=== PATIENT | male | born 1960 | race Caucasian/White ===

== ENCOUNTER 2017-05-22 15:31 | Emergency (ER) | payer SELFPAY ==
[2017-05-22] MEDS ORDERED: KETOROLAC 30 MG/ML INJ ONE (17:19)
--- NOTE | 2017-05-22 17:54 | EDPHYS ---
Physician Documentation [facility] Name: Dilshad Torres Age: 56 yrs Sex: Male : 1960 Arrival Date: 05/22/2017 Time: 15:34 Bed 11 Private MD: ED Physician Nickolas Harrison HPI: 05/22 16:51 This 56 yrs old Male presents to ER via Wheelchair with complaints of Knee jr8 Pain. 16:51 The patient presents with decreased range of motion, pain. The complaints affect the jr8 left knee. Context: The problem was sustained at home, resulted from an unknown cause. Onset: The symptoms/episode began/occurred acutely, yesterday. Modifying factors: The symptoms are alleviated by nothing. the symptoms are aggravated by movement, weight bearing, bending knee. Associated signs and symptoms: The patient has no apparent associated signs or symptoms. Severity of symptoms: At their worst the symptoms were moderate, in the emergency department the symptoms are unchanged. The patient has not experienced similar symptoms in the past. The patient has not recently seen a physician. Historical: - Allergies: 16:00 No Known Allergies; hb - Home Meds: 16:00 Prevacid Oral [Active]; hb - PMHx: 16:00 Gastric Reflux; hb - PSHx: 16:00 Cholecystectomy; Appendectomy; hb - Immunization history:: Adult Immunizations up to date. - Social history:: Smoking status: Patient/guardian denies using tobacco. ROS: 16:51 Eyes: Negative for injury, pain, redness, and discharge, ENT: Negative for injury, jr8 pain, and discharge, Neck: Negative for injury, pain, and swelling, Cardiovascular: Negative for chest pain, palpitations, and edema, Respiratory: Negative for shortness of breath, cough, wheezing, and pleuritic chest pain, Abdomen/GI: Negative for abdominal pain, nausea, vomiting, diarrhea, and constipation, Back: Negative for injury and pain, Skin: Negative for injury, rash, and discoloration, Neuro: Negative for headache, weakness, numbness, tingling, and seizure. 16:51 MS/extremity: Positive for decreased range of motion, pain, tenderness, of the left knee. Exam: 16:51 Cardiovascular: Regular rate and rhythm with a normal S1 and S2. No gallops, murmurs, jr8 or rubs. Normal PMI, no JVD. No pulse deficits. Respiratory: Lungs have equal breath sounds bilaterally, clear to auscultation and percussion. No rales, rhonchi or wheezes noted. No increased work of breathing, no retractions or nasal flaring. Abdomen/GI: Soft, non-tender, with normal bowel sounds. No distension or tympany. No guarding or rebound. No evidence of tenderness throughout. Back: No spinal tenderness. No costovertebral tenderness. Full range of motion. Skin: Warm, dry with normal turgor. Normal color with no rashes, no lesions, and no evidence of cellulitis. Neuro: Awake and alert, GCS 15, oriented to person, place, time, and situation. Cranial nerves II-XII grossly intact. Motor strength 5/5 in all extremities. Sensory grossly intact. Cerebellar exam normal. Normal gait. 16:51 Musculoskeletal/extremity: Extremities: grossly normal except: noted in the left knee: decreased ROM, pain, ROM: full active range of motion, full passive range of motion, limited active range of motion due to pain, limited passive range of motion due to pain, Circulation is intact in all extremities. Sensation intact. Joints: the left knee displays pain at rest, painful range of motion, tenderness. Vital Signs: 16:00 BP 131 / 82; Pulse 75; Resp 18; Temp 98; Pulse Ox 100% on R/A; Weight 98.43 kg; Height hb 5 ft. 10 in. (177.80 cm); Pain 10/10; 18:04 BP 128 / 78; Pulse 89; Resp 17; Pulse Ox 99% on R/A; aj 16:00 Body Mass Index 31.14 (98.43 kg, 177.80 cm) hb Procedures: 17:52 Splinting: Splint applied to left knee using knee immobilizer, applied by nurse. jr8 Examined by me, post splint application: neurovascular intact, 2+ distal pulses palpable, brisk capillary refill noted, Patient tolerated well. Crutch training provided to patient and/or family. Return demonstration given. MDM: 16:11 Patient medically screened. jr8 17:52 Data reviewed: vital signs, nurses notes, radiologic studies, plain films, and as a jr8 result, I will discharge patient. Data interpreted: Pulse oximetry: on room air is 100 %. Interpretation: normal. Counseling: I had a detailed discussion with the patient and/or guardian regarding: the historical points, exam findings, and any diagnostic results supporting the discharge/admit diagnosis, radiology results, the need for outpatient follow up, a orthopedic surgeon, to return to the emergency department if symptoms worsen or persist or if there are any questions or concerns that arise at home. 05/22 16:18 Order name: XRAY Knee LEFT 3 view jr8 05/22 17:48 Order name: Knee Immobilizer; Complete Time: 18:04 hb Administered Medications: 17:08 Drug: TORadol 60 mg Route: IM; Site: right deltoid; aj 18:00 Follow up: Response: No adverse reaction; Pain is decreased aj Disposition: 18:39 Co-signature as Attending Physician, Nickolas Harrison MD. rn Disposition: 05/22/17 17:53 Discharged to Home. Impression: Pain in left knee. - Condition is Stable. - Discharge Instructions: Knee Pain. - Prescriptions for Ibuprofen 800 mg Oral Tablet - take 1 tablet by ORAL route every 12 hours As needed take with food; 20 tablet. Tramadol 50 mg Oral Tablet - take 1 tablet by ORAL route every 8 hours as needed; 12 tablet. - Medication Reconciliation Form, Thank You Letter, Antibiotic Education, Prescription Opioid Use form. - Follow up: Private Physician; When: 2 - 3 days; Reason: Recheck today's complaints, Continuance of care, Re-evaluation by your physician. - Problem is new. - Symptoms have improved. Signatures: Dispatcher [employer] Jessi Deal RN RN aj Nieto, Roman, MD MD rn Roszak, Josh, PA PA jr8 Kristel Johnson RN RN
--- NOTE | 2017-05-22 17:54 | ER ---
Nurse's Notes [facility] Name: Dilshad Torres Age: 56 yrs Sex: Male : 1960 Arrival Date: 05/22/2017 Time: 15:34 Bed 11 Private MD: Diagnosis: Pain in left knee Presentation: 05/22 15:57 Presenting complaint: Patient states: Pt reports he was stepping up into truck hb yesterday and felt something snap behind his knee, now c/o LEFT knee pain /. Transition of care: patient was not received from another setting of care. Onset of symptoms was May 21, 2017. 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 15:57 Method Of Arrival: Wheelchair hb 15:57 Acuity: JOSIE 4 hb Historical: - Allergies: 16:00 No Known Allergies; hb - Home Meds: 16:00 Prevacid Oral [Active]; hb - PMHx: 16:00 Gastric Reflux; hb - PSHx: 16:00 Cholecystectomy; Appendectomy; hb - Immunization history:: Adult Immunizations up to date. - Social history:: Smoking status: Patient/guardian denies using tobacco. Screenin:08 Abuse screen: Denies threats or abuse. Denies injuries from another. Nutritional aj screening: No deficits noted. Tuberculosis screening: No symptoms or risk factors identified. Fall Risk None identified. Assessment: 16:08 General: Appears in no apparent distress. comfortable, Behavior is calm, cooperative, aj appropriate for age. Pain: Complains of pain in posterior aspect of left knee and left knee. Neuro: Level of Consciousness is awake, alert, obeys commands, Oriented to person, place, time, situation. Respiratory: Airway is patent Respiratory effort is even, unlabored, Respiratory pattern is regular, symmetrical. Derm: Skin is intact, is healthy with good turgor, Skin is pink, warm \T\ dry. normal. Musculoskeletal: Circulation, motion, and sensation intact. Reports pain in posterior aspect of left knee and left knee. Vital Signs: 16:00 BP 131 / 82; Pulse 75; Resp 18; Temp 98; Pulse Ox 100% on R/A; Weight 98.43 kg; Height hb 5 ft. 10 in. (177.80 cm); Pain 10/10; 18:04 BP 128 / 78; Pulse 89; Resp 17; Pulse Ox 99% on R/A; aj 16:00 Body Mass Index 31.14 (98.43 kg, 177.80 cm) ED Course: 15:34 Patient arrived in ED. mr 15:59 Triage completed. hb 16:00 Arm band placed on left wrist. hb 16:08 Jessi Cazares, RN is Primary Nurse. aj 16:08 Patient has correct armband on for positive identification. aj 16:08 No provider procedures requiring assistance completed. Patient did not have IV access aj during this emergency room visit. 16:11 Stoney Pascual PA is PHCP. wendy 16:11 Nickolas Harrison MD is Attending Physician. jrRoque 18:04 Knee immobilizer applied on left knee. aj Administered Medications: 17:08 Drug: TORadol 60 mg Route: IM; Site: right deltoid; aj 18:00 Follow up: Response: No adverse reaction; Pain is decreased aj Outcome: 17:53 Discharge ordered by MD. jr8 18:04 Discharged to home ambulatory. aj 18:04 Condition: good 18:04 Discharge instructions given to patient, Instructed on discharge instructions, follow up and referral plans. medication usage, Demonstrated understanding of instructions, follow-up care, medications, Prescriptions given X 2. 18:05 Patient left the ED. Signatures: Jessi Cazares, RN RN Laxmi Corbett mr Stoney Pascual PA PA Kristel Martin RN RN
[2017-05-22 18:09] VITALS: TEMP 98
[2017-05-22 18:10] VITALS: BP 128/78; O2SAT 99
--- NOTE | 2017-05-22 18:14 | RAD REPORT ---
EXAM DESCRIPTION: RAD - Knee Left 3 View - 05/22/2017 5:40 pm CLINICAL HISTORY: Left knee pain status post injury FINDINGS: Several bony densities lie anterior to proximal tibia. Most likely these are chronic. No a cute fracture or dislocation is seen. If the patient continues to have symptoms to suggest an occult fracture, tendon or meniscal injury th en MRI would be recommended
== END 2017-05-22 18:05 | disposition home or self-care (01) ==
LOC: ER 15:31
DX: M25.562 Pain in left knee (principal); K21.9 Gastro-esophageal reflux disease without esophagitis; X58.XXXA Exposure to other specified factors, initial encounter; Y92.009 Unspecified place in unspecified non-institutional (private) residence as the place of occurrence of the external cause
CPT/HCPCS: 96372; 99283

== ENCOUNTER 2022-04-28 08:42 | Emergency (ER) | payer OTHER ==
--- OUTSIDE RECORDS SUMMARY | 2022-04-28 08:46 | XMS REPORT | Continuity of Care Document ---
:1960 Author Organization [facility] t Address [address] [place] [address] Care Team Providers Name Role Phone Jimmy Blunt Attending Clinician Unavailable Payers Payer Name Policy Type Policy Number Effective Date Expiration Date S [place] [id number] 2021 Common HEALTHCARE 00:00:00 [facility] Problems Condition Condition Condition Status Onset Resolution Last Treating Co mments Source Name Details Category Date Date Treatment Clinician Date [id number] Primary Problem Comm on osteoarthr [facility] itis of [facility] right knee [facility] [id number] GERD Problem Common without [facility] esophagiti [facility] [id number] Mixed Problem Common hyperlipid [facility] emia [facility] Allergies, Adverse Reactions, Alerts This patient has no known allergies or adverse reactions. Social History Social Habit Start Date Stop Date Quantity Comments Source History of Tobacco Use Co mmon [facility] Sex Assigned At Com mon [facility] Smoking Status Start Date Stop Date Source Never Smoker Common [facility] Medications Ordered Filled Start Stop Current Ordering Indication Dosage Frequency Signature Comments Components Source Medication Medication Date Date Medication? Clinician (SIG) Name Name Lovastatin Lovastatin 2020-0 Yes Jimmy 1 tablet Common 8-11 Blunt with [facility] 00:00: evening - [facility] 00 meal [facility] Pantoprazol Pantoprazol 2019-0 Yes Jimmy 1 tablet Common e Sodium e Sodium 8-11 Blunt [facility] 00:00: - [facility] 00 [facility] Pantoprazol Pantoprazol 2020-0 No 1{table QD Pantoprazo e Sodium 40 e Sodium 40 8-11 t} le Sodium MG MG 00:00: 40 MG 00 Lovastatin Lovastatin 2019-0 No QD Lovastatin 20 MG 20 MG 8-11 20 MG 00:00: 00 Pantoprazol Pantoprazol 2020-0 No 1{table QD Pantoprazo e Sodium 40 e Sodium 40 8-11 t} le Sodium MG MG 00:00: 40 MG 00 Lovastatin Lovastatin 0 No QD Lovastatin 20 MG 20 MG 8-11 20 MG 00:00: 00 Osteo Osteo 2020-0 Yes Jimmy 1 tablet Commo n Bi-Flex Adv Bi-Flex Adv 4-29 [facility]unt [facility] Joint Joint 00:00: - [facility] Shield Shield 00 [facility] Osteo Osteo 2020-0 No 1{table BID Osteo Bi-Flex Adv Bi-Flex Adv 4-29 t} Bi-Flex Joint Joint 00:00: Adv Joint Shield - Shield - 00 Shield - Osteo Osteo 2020-0 No 1{table BID Osteo Bi-Flex Adv Bi-Flex Adv 4-29 t} Bi-Flex Joint Joint 00:00: Adv Joint Shield - Shield - 00 Shield - Prilosec Prilosec Yes Jimmy not Commo n OTC OTC Blunt defined [facility] PriLOSEC PriLOSEC No PriLOSEC OTC OTC OTC PriLOSEC PriLOSEC No PriLOSEC OTC OTC OTC Procedures This patient has no known procedures. Encounters Start End Encounter Admission Attending Care Care Encounter Source Date/Time Date/Time Type Type Clinicians Facility Department ID 2021-12-09 Outpatient Blunt, [facility] [id number] Common 11:19:01 Jimmy [facility] 2021-03-30 Outpatient Blunt, [facility] [id number] Common 11:36:51 Jimmy [id number] [facility] 2021-03-30 Outpatient Blunt, [facility] [id number] Common 11:33:02 Jimmy [id number] [facility] 2021-03-30 Outpatient Blunt, [facility] [id number] Common 11:19:01 [facility] [id number] [facility] 2022-01-30 2022-01-30 (TEL) STLMLC STLMLC [id number] Co mmon 00:00:00 00:00:00 [facility] 2022-01-30 2022-01-30 (TEL) STLMLC STLMLC [id number] Co mmon 00:00:00 00:00:00 [facility] 2019-10-14 2019-10-14 [facility] [id number] Common 13:15:00 13:15:[address] [facility] 2019-07-22 2019-07-22 [facility] [id number] Common 10:20:00 10:20:00 t [facility] [address] [facility] 2019-07-01 2019-07-01 [facility] [id number] Common 13:17:00 13:17:[address] [facility] 2019-07-01 2019-07-01 [facility] [id number] Common 08:45:00 08:45:[address] [facility] 2019-06-25 2019-06-25 [facility] [id number] Common 15:30:00 15:30:[address] [facility] Results This patient has no known results.
[2022-04-28 09:13] LABS: Urine Blood 3+ (Negative); Urine Glucose Negative (Negative); Urine Protein Trace (Negative); Urine Specific Gravity 1.015 (1.005-1.030)
[2022-04-28 09:27] LABS: Urine Bacteria None Seen /HPF (<20); Urine Mucus Slight /HPF (None Seen); Urine RBC >50 /HPF (None Seen)
[2022-04-28 09:44] LABS: Absolute Lymphocytes (CBC) 1.4 K/uL (0.7-4.9); Hematocrit 40.8 % (39.6-49.0); Lymphocytes % 23.6 % (15.3-44.8); MCV 89.1 fL (80-100); MPV 7.5 fL (7.6-11.3); RBC Red Blood Cell Count 4.58 M/uL (4.33-5.43)
[2022-04-28 10:15] LABS: Albumin 4.1 g/dL (3.4-5.0); Bilirubin Total 0.4 mg/dL (0.2-1.0); Protein, Total 7.9 g/dL (6.4-8.2)
--- NOTE | 2022-04-28 11:04 | RAD REPORT ---
EXAM DESCRIPTION: CT - Abdomen Pelvis W Contrast - 04/28/2022 10:30 am CLINICAL HISTORY: Hematuria. Dysuria COMPARISON: 12/20/2015 TECHNIQUE: Biphasic, helical CT imaging of the abdomen and pelvis was performed following the intrav enous administration of 100 mL Isovue-300. Multiplanar reformats were generated and reviewed. All CT scans are performed using dose optimization technique as appropriate and may include automated exposure control or mA/KV adjustment according to patient size. FINDINGS: No suspicious findings in the lung bases. The liver, spleen, and pancreas show no suspicious findings. Status post cholecystectomy. Grossly, no evidence of intra or extrahepatic biliary ductal dilation. Symmetric renal function is seen with no hydronephrosis or suspicious renal mass. No dilated bowel loops or bowel wall thickening. No free air, free fluid or inflammatory stranding. N o hernia, mass or bulky lymphadenopathy. Suboptimal distention of the urinary bladder limits evaluation. Mild prominence of the prostate gland , with its median lobe projecting along the neck of the bladder. Small fat containing umbilical hernia. No suspicious bony findings. IMPRESSION: No acute abnormality. No suspicious findings to explain the patient's symptoms. The evaluation is limited in the absence of a urographic phase. If clinically indicated, a dedicated hematuria protocol CT with a delayed urographic phase can be performed for further evaluation.
--- NOTE | 2022-04-28 11:11 | ER ---
Nurse's Notes [facility] Name: Dilshad Torres Age: 61 yrs Sex: Male : 1960 Arrival Date: 04/28/2022 Time: 08:45 Bed 8 Private MD: Jimmy Blunt Diagnosis: Hematuria, unspecified Presentation: 04/28 09:10 Chief complaint: Hematuria and burning with urination since yesterday. Coronavirus hb screen: At this time, the client does not indicate any symptoms associated with coronavirus-19. Ebola Screen: No symptoms or risks identified at this time. Initial Sepsis Screen: Does the patient meet any 2 criteria? No. Patient's initial sepsis screen is negative. Does the patient have a suspected source of infection? No. Patient's initial sepsis screen is negative. Risk Assessment: Do you want to hurt yourself or someone else? Patient reports no desire to harm self or others. Onset of symptoms was April 27, 2022. 09:10 Method Of Arrival: Ambulatory hb 09:10 Acuity: JOSIE 3 hb Triage Assessment: 10:18 Headache History: The patient has had previous headaches and this one is similar to ll1 previous episodes. General: Appears uncomfortable, Behavior is calm, cooperative, appropriate for age. Pain: Complains of pain in head Pain Quality of pain is described as aching. Neuro: Reports headache. : Reports burning with urination. 11:18 Pain: Pain began 1 day ago. Also complains of no other associated symptoms. ll1 Historical: - Allergies: 09:11 No Known Allergies; hb - Home Meds: 09:11 Prevacid Oral [Active]; hb - PMHx: 09:11 Gastric Reflux; hb - PSHx: 09:11 Cholecystectomy; Appendectomy; hb - Immunization history:: Adult Immunizations up to date. - Social history:: Smoking status: . Screenin:18 [facility] ED Fall Risk Assessment (Adult) Score/Fall Risk Level 0 - 2 = Low Risk ll1 Oriented to surroundings, Maintained a safe environment, Educated pt \T\ family on fall prevention, incl call for assistance when getting out of bed, Hourly rounding (assess needs \T\ fall precautionary measures) done. Abuse screen: Denies threats or abuse. Nutritional screening: No deficits noted. Tuberculosis screening: No symptoms or risk factors identified. Assessment: 10:18 Reassessment: No changes from previously documented assessment. Patient and/or family ll1 updated on plan of care and expected duration. Pain level reassessed. Patient is alert, oriented x 3, equal unlabored respirations, skin warm/dry/pink. 10:35 Reassessment: No changes from previously documented assessment. back from CT. ll1 Vital Signs: 09:10 BP 136 / 80; Pulse 62; Resp 20; Temp 98; Pulse Ox 99% ; Weight 99.79 kg; Height 5 ft. hb 10 in. (177.80 cm); Pain 0/10; 11:18 BP 137 / 77; Pulse 57; Resp 18; Pulse Ox 99% on R/A; ll1 09:10 Body Mass Index 31.57 (99.79 kg, 177.80 cm) hb ED Course: 08:45 Patient arrived in ED. mr 08:45 Jimmy Blunt DO is Private Physician. mr 08:47 Chand[facility] Guadarrama [facility]C [facility] kb 08:47 Ward Nunze MD is Attending Physician. kb 09:11 Triage completed. hb 09:12 Arm band placed on. hb 09:33 Initial lab(s) drawn, by co, sent to lab. Inserted saline lock: 20 gauge in right mb4 antecubital area, using aseptic technique. Blood collected. 09:36 CBC with Diff Sent. mb4 09:36 CMP Sent. mb4 10:17 Laura Mahan, RN is Primary Nurse. ll1 10:31 CT Abd/Pelvis - IV Contrast Only In Process Unspecified. EDMS 11:11 Uzair Garcia MD is Referral Physician. kb 11:18 Patient has correct armband on for positive identification. Bed in low position. Client ll1 placed on continuous cardiac and pulse oximetry monitoring. NIBP monitoring applied. 11:18 No provider procedures requiring assistance completed. IV discontinued, intact, ll1 bleeding controlled, No redness/swelling at site. Pressure dressing applied. Administered Medications: No medications were administered Medication: 10:19 VIS not applicable for this client. ll1 Outcome: 11:11 Discharge ordered by . kb 11:18 Discharged to home ambulatory. ll1 11:18 Condition: stable 11:18 Discharge instructions given to patient, Instructed on discharge instructions, follow up and referral plans. Demonstrated understanding of instructions, follow-up care. 11:19 Patient left the ED. ll1 Signatures: Dispatcher [employer] EDChandni Lopez, LUIS F PEDRO-Latasha Hoang Heather, RN RN Kenyatta Johnson 4 Laura Mahan RN RN ll1
--- NOTE | 2022-04-28 11:11 | EDPHYS ---
Physician Documentation [facility] Name: Dilshad Torres Age: 61 yrs Sex: Male : 1960 Arrival Date: 04/28/2022 Time: 08:45 Bed 8 Private MD: Jose Raul Formerly [facility], [facility] ED Physician Ward Nunez HPI: 04/28 09:30 This 61 yrs old Male presents to ER via Ambulatory with complaints of Urinary Problem, kb Headache. 09:30 The patient presents with urinary symptoms, dysuria, Hematuria. Onset: The kb symptoms/episode began/occurred yesterday. Modifying factors: The symptoms are alleviated by nothing, the symptoms are aggravated by urinating. Associated signs and symptoms: Pertinent positives: dysuria, hematuria, Pertinent negatives: abdominal pain, fever. Severity of symptoms: At their worst the symptoms were moderate, in the emergency department the symptoms are unchanged. The patient has not experienced similar symptoms in the past. The patient has not recently seen a physician. Historical: - Allergies: 09:11 No Known Allergies; hb - Home Meds: 09:11 Prevacid Oral [Active]; hb - PMHx: 09:11 Gastric Reflux; hb - PSHx: 09:11 Cholecystectomy; Appendectomy; hb - Immunization history:: Adult Immunizations up to date. - Social history:: Smoking status: . ROS: 09:28 Constitutional: Negative for fever, chills, and weight loss. kb 09:28 : Positive for hematuria, burning with urination. 09:28 All other systems are negative. Exam: 09:28 Constitutional: This is a well developed, well nourished patient who is awake, alert, kb and in no acute distress. Head/Face: Normocephalic, atraumatic. ENT: Moist Mucous membranes Cardiovascular: Regular rate and rhythm with a normal S1 and S2. No gallops, murmurs, or rubs. No pulse deficits. Respiratory: Respirations even and unlabored. No increased work of breathing. Talking in full sentences Abdomen/GI: Soft, non-tender. No distention Skin: Warm, dry with normal turgor. Normal color. MS/ Extremity: Pulses equal, no cyanosis. Neurovascular intact. Full, normal range of motion. Neuro: Awake and alert, GCS 15, oriented to person, place, time, and situation. Moves all extremities. Normal gait. Vital Signs: 09:10 BP 136 / 80; Pulse 62; Resp 20; Temp 98; Pulse Ox 99% ; Weight 99.79 kg; Height 5 ft. hb 10 in. (177.80 cm); Pain 0/10; 11:18 BP 137 / 77; Pulse 57; Resp 18; Pulse Ox 99% on R/A; ll1 09:10 Body Mass Index 31.57 (99.79 kg, 177.80 cm) hb MDM: 08:55 Patient medically screened. 09:28 Data reviewed: vital signs, nurses notes. kb 09:28 Differential diagnosis: UTI, prostatitis, urethritis, Bladder cancer, cystitis, kidney kb stone. ED course: Patient is a 61-year-old male who presents for hematuria and dysuria that started yesterday. Also reports headaches daily for over 6 months. Denies abdominal pain, flank pain, fever. Normal physical exam. Will obtain serum labs, urinalysis and CT abdomen pelvis.. 11:10 Counseling: I had a detailed discussion with the patient and/or guardian regarding: the historical points, exam findings, and any diagnostic results supporting the discharge/admit diagnosis, lab results, radiology results, the need for outpatient follow up, a urologist, to return to the emergency department if symptoms worsen or persist or if there are any questions or concerns that arise at home. 12:15 I considered the following discharge prescriptions or medication management in the emergency department Antibiotics: At this time antibiotics are not recommended. ED course: Patient is nontoxic in appearance, tolerating p.o. intake. No abdominal or flank pain. Educated on diagnostic results and need for follow-up with urology. Verbal understanding received.. 04/28 08:59 Order name: Urine Microscopic Only; Complete Time: 09:28 kb 04/28 08:59 Order name: CBC with Diff; Complete Time: 09:48 kb 04/28 08:59 Order name: Urine Dipstick-Ancillary (obtain specimen); Complete Time: 09:13 kb 04/28 08:59 Order name: CMP; Complete Time: 10:19 kb 04/28 08:59 Order name: CT Abd/Pelvis - IV Contrast Only; Complete Time: 11:04 kb 04/28 09:13 Order name: Urine Dipstick-Ancillary; Complete Time: 09:16 EDMS 04/28 08:59 Order name: IV Saline Lock; Complete Time: 09:36 kb 04/28 08:59 Order name: Labs collected and sent; Complete Time: 09:36 kb Administered Medications: No medications were administered Disposition Summary: 04/28/22 11:11 Discharge Ordered Location: Home kb Condition: Stable kb Diagnosis - Hematuria, unspecified kb Followup: kb - With: Emergency Department - When: As needed - Reason: Worsening of condition Followup: kb - With: Private Physician - When: 2 - 3 days - Reason: Recheck today's complaints, Continuance of care, Re-evaluation by your physician Followup: kb - With: Uzair Garcia MD - When: 2 - 3 days - Reason: Recheck today's complaints Discharge Instructions: - Discharge Summary Sheet kb - Hematuria, Adult kb Forms: - Medication Reconciliation Form kb - Thank You Letter kb - Antibiotic Education kb - Prescription Opioid Use kb Signatures: Dispatcher [employer] EDMS Chandni Guadarrama, DISTRICT CLAIMS MANAGER-C DISTRICT CLAIMS MANAGER-Kristel Leigh, RN RN
[2022-04-28 11:39] VITALS: TEMP 98; O2SAT 99
[2022-04-28 11:45] VITALS: BP 137/77
== END 2022-04-28 11:19 | disposition home or self-care (01) ==
LOC: ER 08:42
DX: R31.9 Hematuria, unspecified (principal); R30.0 Dysuria
CPT/HCPCS: 85025; 36415; 80053; 74177; 99283; Q9967; 81003; 81015

== ENCOUNTER 2023-02-28 07:48 | Day surgery (SDC) | payer OTHER ==
[2023-02-27 11:14] LABS: Absolute Lymphocytes (CBC) 0.7 K/uL (0.7-4.9); Hematocrit 41.4 % (39.6-49.0); Lymphocytes % 13.6 % (15.3-44.8); MPV 7.8 fL (7.6-11.3); Platelets 255 thou/uL (152-406); RBC Red Blood Cell Count 4.55 M/uL (4.33-5.43)
[2023-02-27 11:27] LABS: Potassium 4.5 mEq/L (3.5-5.1)
--- NOTE | 2023-02-27 14:07 | RAD REPORT ---
EXAM DESCRIPTION: RAD - Chest Pa And Lat (2 Views) - 02/27/2023 10:58 am CLINICAL HISTORY: Pre op pending thigh mass removal. Hypertension COMPARISON: No comparisons TECHNIQUE: PA and lateral views of the chest were obtained. FINDINGS: The lungs are clear. Heart size is normal and central vasculature is within normal limits. No pleural effusion or pneumothorax seen. No acute bony finding noted. IMPRESSION: No acute cardiopulmonary process.
[2023-02-28] MEDS ORDERED: Ringers Lactate 1,000 ML IV ONE (08:04)
[2023-02-28] MEDS ORDERED: CEFAZOLIN SODIUM 1 GM/VIAL ONE (08:19)
[2023-02-28] MEDS ORDERED: dexAMETHasone 4 MG/ML VIAL ONE (09:21)
[2023-02-28] MEDS ORDERED: ONDANSETRON 4 MG/2 ML VIAL ONE ×2 (09:21→09:51)
[2023-02-28] MEDS ORDERED: LIDOCAINE 1% MPF 5 ML VIAL ONE (09:21)
[2023-02-28] MEDS ORDERED: propofoL 200 MG/20 ML VIAL IV ONE (09:25)
[2023-02-28] MEDS ORDERED: MIDAZOLAM HCL 2 MG/2 ML INJ ONE (09:28)
[2023-02-28] MEDS ORDERED: FENTANYL CITR 100 MCG/2 ML ONE (09:29)
[2023-02-28] MEDS ORDERED: KETOROLAC 30 MG/ML INJ ONE (09:51)
[2023-02-28] MEDS ORDERED: dexAMETHasone 10 MG/ML VIAL ONE (09:51)
[2023-02-28] MEDS ORDERED: EPHEDRINE SULF 50 MG/ML VIAL ONE (09:54)
[2023-02-28] MEDS ORDERED: Phenylephrine HCl 10 MG/ML 1 ML VIAL ONE (10:07)
--- NOTE | 2023-02-28 10:29 | P.BOP ---
Preoperative diagnosis: right posterior thigh tender subQ mass Postoperative diagnosis: same Primary procedure: Excisional biopsy right posterior thigh tender subQ mass 5x3cm Estimated blood loss: <10cc Specimen: mass Findings: mass Anesthesia: General Complications: None Transferred to: Recovery Room Condition: Good
[2023-02-28] MEDS ORDERED: CODEINE 30MG/APAP 300MG TAB ONE (11:38)
[2023-02-28 12:03] VITALS: BP 105/57; TEMP 97.6; O2SAT 96
--- NOTE | 2023-03-01 13:27 | EKG ---
Test Date: 2023-02-27 Test Time: 11:39:02 Straw Baler: ALBER MEASUREMENT RESULTS: Intervals: Rate: 72 ND: 158 QRSD: 88 QT: 370 QTc: 405 [place]: P: 50 ND: 158 QRS: 50 T: 39 INTERPRETIVE STATEMENTS: Normal sinus rhythm Normal ECG Compared to ECG 02/17/2014 08:39:55 No significant changes Electronically Signed On 03-01-23 13:22:34 DYE COLORIST DYER by Abilio Aguila
== END 2023-02-28 12:10 | disposition home or self-care (01) ==
LOC: OR 07:48
PROVIDERS: ATTEND Surgery
PROC: 0JBL0ZZ Excision of Right Upper Leg Subcutaneous Tissue and Fascia, Open Approach (ICD-10-PCS; principal; 2023-02-28 09:30)
DX: D17.23 Benign lipomatous neoplasm of skin and subcutaneous tissue of right leg (principal)
CPT/HCPCS: 93005; 85025; 80048; 36415; 88304; 71046; 11406; J2704; J1100 ×2; J2001; J2371; J2250; J3010; J2405 ×2; J7120; J0690